=== PATIENT | female | born 1965 | race Two or more races ===

== ENCOUNTER 2025-03-08 07:33 | Emergency (ER) | payer MEDICAID, OTHER ==
[~2025-03-08] VITALS: Ht 149.9 cm; Wt 161.8 kg
--- NOTE | 2025-03-08 08:29 | ED.PDOC ---
Musculoskeletal HPI Comments A 59 YEAR-OLD FEMALE PRESENTS TO THE ED WITH A CHIEF COMPLAINT OF NUMBNESS AND TINGLING TO LEFT THIGH WITH ASSOCIATED LOWER BACK PAIN OF X1 WEEK AGO. PATIENT REPORTS BEING SEEN BY PCP FOR TINGLING SENSATION AND BEING DIAGNOSED WITH ARTHRITIS of OF LEFT KNEE. PATIENT ADDITIONALLY REPORTS TAKING TYLENOL WITH SOME ALLEVIATION NOTED. PATIENT HAS NO FURTHER COMPLAINTS AT THIS TIME. PATIENT OTHERWISE DENIES FURTHER ASSOCIATED SYMPTOMS OF CHEST PAIN, DIZZINESS, N/V, FEVER, CHILLS, OR GENERAL WEAKNESS. PATIENT IS ALERT, ORIENTED X 4, AND HAS STEADY GAIT. Chief Complaint: Lower Extremity Time Seen by MD: 08:24 Reviewed Notes: Nurses Notes, Medications, Allergies Home Meds Active Scripts Tramadol HCl (Tramadol HCl) 50 Mg Tab, 50 MG PO TID, #20 TAB Prov:LALI HERNANDEZ 03/08/25 Prednisone (Prednisone) 20 Mg Tab, 40 MG PO DAILY, #20 TAB Prov:LALI HERNANDEZ 03/08/25 Information Source: Patient Mode of Arrival: Ambulatory Location: Left Extremity Location: Back (LOWER ), Thigh (LEFT ) Timing: Days Prehospital treatment: None Severity: Moderate Pain: Moderate Hand Dominance: Right DVT Risk Factors: NONE Last Tetanus: UTD Associated signs and symptoms: Back pain, Thigh pain (LEFT ) Past Medical History PAST MEDICAL HISTORY: Arthritis, HTN Surgical History: Denies all surgeries FISH CONSERVATIONIST History: No Pertinent FISH CONSERVATIONIST History Family History Family History: Reviewed,noncontributory to illness, No family hx of Cancer, No family hx of DM, No family hx of Heart jessica, No family hx of HTN, No family hx ofKidney jessica, No family hx of Liver jessica, No family hx of Lung jessica, No family hx of Stroke Social History Smoker: Non-Smoker Alcohol: Denies ETOH Use Drugs: Denies Drug Use Lives In: Home Constitutional: denies: chills, diaphoresis, fatigue, fever, malaise, sweats, weakness, others EENTM: denies: blurred vision, double vision, ear bleeding, ear discharge, ear drainage, ear pain, ear ringing, eye pain, eye redness, hearing loss, mouth pain, mouth swelling, nasal discharge, nose bleeding, nose congestion, nose pain, photophobia, tearing, throat pain, throat swelling, voice changes, others Respiratory: denies: cough, hemoptysis, orthopnea, SOB at rest, shortness of breath, SOB with excertion, stridor, wheezing, others Cardiovascular: denies: chest pain, dizzy spells, diaphoresis, Dyspnea on exertion, edema, irregular heart beat, left arm pain, lightheadedness, palpitations, PND, syncope, others Gastrointestinal: denies: abdomen distended, abdominal pain, blood streaked bowels, constipated, diarrhea, dysphagia, difficulty swallowing, hematemesis, melena, nausea, poor appetite, poor fluid intake, rectal bleeding, rectal pain, vomiting, others Genitourinary: denies: abnormal vagina bleeding, burning, dyspareunia, dysuria, flank pain, frequency, hematuria, incontinence, pain, , vagina discharge, urgency, others Neurological: reports: others (LEFT THIGH TINGLING/NUMBNESS ); denies: dizziness, fainting, headache, left sided numbness, left sided weakness, numbness, paresthesia, pre-existing deficit, right sided numbness, right sided weakness, seizure, speech problems, tingling, tremors, weakness Musculoskeletal: reports: back pain (LOWER ), joint pain, joint swelling, muscle pain, others (SWELLING TO LEFT THIGH ); denies: gout, muscle stiffness, neck pain Integumetry: denies: bruises, change in color, change in hair/nails, dryness, laceration, lesions, lumps, rash, wounds, others Allergic/Immunocompromised: denies: Difficulty Healing, Frequent Infections, Hives, Itching, others Hematologic/Lymphatic: denies: anemia, blood clots, easy bleeding, easy bruising, swollen glands, others Endocrine: denies: excessive hunger, excessive sweating, excessive thirst, excessive urination, flushing, intolerance to cold, intolerance to heat, unexplained weight gain, unexplained weight loss, others Psychiatric: denies: anxiety, bipolar disorder, depression, hopeless, panic disorder, schizophrenia, sleepless, suicidal, others All Other Systems: Reviewed and Negative Physical Exam General Appearance: No Apparent Distress, Obese HEENT: Normal ENT Inspection, PERRL/EOMI, Pharynx Normal, TMs Normal Neck: Full Range of Motion, Non-Tender, Normal, Normal Inspection Respiratory: Chest Non-Tender, Lungs Clear, No Accessory Muscle Use, No Respiratory Distress, Normal Breath Sounds Cardiovascular: No Edema, No JVD, No Murmur, No Gallop, Normal Peripheral Pulses, Regular Rate/Rhythm Breast Exam: Deferred Gastrointestinal: No Organomegaly, Non Tender, No Pulsatile Mass, Normal Bowel Sounds, Soft Genitalia: Deferred Pelvic: Deferred Rectal: Deferred Extremities: No calf tenderness, Normal capillary refill, Normal range of motion, No pedal edema, Swelling (AND TENDERNESS ON LEFT KNEE, NO REDNESS AND HOT OF LEFT KNEE, NO DVT SIGHS OF LEFT LOWER LEG. ) Musculoskeletal : Location: Bilateral Extremity Location: Back Apperance: Tenderness (AND MUSCLE SPAASM ON LOWER BACK, NO BONY TENDERNESS, SWELLING AND DEFORMITY. ) Neurologic: Alert, train station agent II-XII nml as Tested, No Motor Deficits, Normal Affect, Normal Mood, No Sensory Deficits Cerebellar Function: Normal Reflexes: Normal Skin: Dry, Normal Color, Warm Peripheral Pulses: 2+ carotid (R), 2+ carotid (L), 2+ dorsalis pedis (R), 2+ dorsalis pedis (L) Lymphatic: No Adenopathy Was a procedure done? Was a procedure done?: No Differential Diagnosis EXT Differential Diagnosis: Fracture, Sprain, Strain, Arthritis, Bursitis X-Ray, Labs, Meds, VS Vital Signs Date Time Temp Pulse Resp B/P (MAP) Pulse Ox O2 Delivery O2 Flow Rate FiO2 03/08/25 09:08 75 18 97 Room Air 03/08/25 09:08 98.1 75 18 155/67 (96) 97 98.1 03/08/25 07:36 98.1 84 16 179/89 98 98.1 PATIENT: CHANDRA LAMCCT: [id number]: [id number] : 1965 LOC: ER ROOM / BED: / AGE / SEX: 59 / F ADM STATUS: REG ER SERVICE [id number] ORDERING PHYSICIAN: LALI HERNANDEZ PROCEDURE(s): LUMB2 - LUMBAR SPINE 3 VIEW REASON: BACK PAIN TO LEFT THIGH ORDER NUMBER(s): [id number], ACCESSION NUMBER(s): [id number] EXAM: XY LUMBAR SPINE 3 VIEW HISTORY: BACK PAIN TO LEFT THIGH COMPARISON: None TECHNIQUE: AP and lateral views of the lumbar spine and spot lateral of the lumbosacral junction were performed. FINDINGS: No fracture or listhesis of the lumbar spine. There is mild degenerative disc disease and facet arthropathy IMPRESSION: Mild degenerative changes of the lumbar spine without evidence of fracture. ATED BY: AMY GARDNER MD DICTATED DATE/TIME: 03/08/25902 SIGNED BY: AMY GARDNER MD SIGNED DATE/TIME: 03/08/25902 CC: X-Ray, Labs, Meds, VS Comment EXTERNAL MEDICAL RECORDS REVIEWED: [NONE] INDEPENDENT HISTORIANS: [NONE] SOCIAL DETERMINANTS OF HEALTH: [NONE] LABS ORDERED: NONE REVIEWED AND INTERPRETED RESULTS: NONE IMAGING ORDERED: LUMBAR SPINE XRAY: MILD DJD OF LOWER BACK, NO FX AND DISLOCATION, READ BY ME, PENDING RADIOLOGIST READING. TREATMENTS ORDERED: NONE PROCEDURES PERFORMED: NONE CRITICAL CARE TIME: NONE I HAVE DISCUSSED THE PATIENT WITH THE DR. VALDES AND HE AGREES WITH THE PATIENT'S PLAN OF CARE AND DISPOSITION. BASED ON HISTORY OF PRESENT ILLNESS, AND PHYSICAL EXAM, PATIENT WILL BE DISCHARGED HOME. DISCUSSED PLAN FOR DISCHARGE HOME WITH RX [TRADOL AND PREDNISONE]. MEDICATION WARNINGS GIVEN. SHARED DECISION MAKING: DISCUSSED WITH PATIENT THAT THEIR WORKUP WAS NORMAL. PATIENT INSTRUCTED TO FOLLOW UP WITH PRIMARY CARE PROVIDER IN 1-2 DAYS FOR RE- EVALUATION OF SYMPTOMS. PATIENT VERBALIZES UNDERSTANDING TO RETURN TO ED FOR NEW OR WORSENING SYMPTOMS OR IF FOLLOW UP WITH PCP CANNOT BE OBTAINED. PATIENT FEELS COMFORTABLE GOING HOME AT THIS TIME. ALL QUESTIONS ADDRESSED AT TIME OF DISCHARGE. Images Reviewed?: Images reviewed and evaluated by me Time of 1ST Reevaluation: 09:20 Reevaluation 1ST: Improved Patient Education/Counseling: Diagnosis, Treatment, Need For Follow Up Family Education/Counseling: No Family Present Medical Screening: No EMC Exist At This Time Departure 1 Departure Time of Disposition: 09:20 Impression: Primary Impression: Low back pain with left-sided sciatica Qualified Codes: M54.42 - Lumbago with sciatica, left side Additional Impression: Degenerative joint disease of left knee Qualified Codes: M17.12 - Unilateral primary osteoarthritis, left knee Disposition: HOME / SELF CARE / HOMELESS Condition: Stable Additional Instructions: FOLLOW-UP WITH PCP IN 1 TO 2 DAYS. TAKE MEDICATIONS PRESCRIBED. RETURN TO ED FOR ANY NEW OR WORSENING SYMPTOMS. e-Prescriptions Tramadol HCl (Tramadol HCl) 50 Mg Tab 50 MG PO TID, #20 TAB Prov: LALI HERNANDEZ 03/08/25 Prednisone (Prednisone) 20 Mg Tab 40 MG PO DAILY, #20 TAB Prov: LALI HERNANDEZ 03/08/25 Discharged With: Self Critical Care Note Critical Care Time?: No Stability Stability form required: No Heart Score Heart Score: Heart Score Response (Comments) Value History N/A 0 EKG N/A 0 Age N/A 0 Risk Factors N/A 0 Troponin N/A 0 Total 0 I personally scribed for LALI HERANNDEZ ([email or web address]) on 03/08/25 at 08:29. Electronically submitted by Danna Edwards ([employer]). I personally scribed for LALI HERNANDEZ ([email or web address]) on 03/08/25 at 08:38. Electronically submitted by Danna Edwards ([employer]). I personally scribed for LALI HERNANDEZ ([email or web address]) on 03/08/25 at 08:54. Electronically submitted by Danna Edwards ([employer]). I personally scribed for LALI HERNANDEZ ([email or web address]) on 03/08/25 at 08:57. Electronically submitted by Danna Edwards ([employer]). I personally scribed for LALI HERNANDEZ ([email or web address]) on 03/08/25 at 09:02. Electronically submitted by Danna Edwards ([employer]). LALI HERNANDEZ Mar 08, 2025 08:29
[2025-03-08] MEDS ORDERED: PRED20TA2 PO (09:02)
[2025-03-08] MEDS ORDERED: TRAM-626 PO (09:02)
--- NOTE | 2025-03-08 09:05 | DVH ---
EXAM: XY LUMBAR SPINE 3 VIEW HISTORY: BACK PAIN TO LEFT THIGH COMPARISON: None TECHNIQUE: AP and lateral views of the lumbar spine and spot lateral of the lumbosacral junction were performed. FINDINGS: No fracture or listhesis of the lumbar spine. There is mild degenerative disc disease and facet arth ropathy IMPRESSION: Mild degenerative changes of the lumbar spine without evidence of fracture.
[2025-03-08 09:08] VITALS: BP 155/67; PULSE 75; RESP 18; TEMP 98.1; O2SAT 97
== END 2025-03-08 09:10 | disposition home or self-care (01) ==
LOC: ER 07:33
DX: M54.42 Lumbago with sciatica, left side (principal); M17.12 Unilateral primary osteoarthritis, left knee; I10 Essential (primary) hypertension; Z79.899 Other long term (current) drug therapy; Z79.52 Long term (current) use of systemic steroids
CPT/HCPCS: 72100